=== PATIENT | female | born 1975 | race Caucasian/White ===

== ENCOUNTER 2016-10-23 10:36 | Emergency (ER) | payer OTHER ==
[2016-10-23 12:15] VITALS: BP 116/59
--- NOTE | 2016-10-23 13:06 | UC ---
Throat Pain/Nasal Cory HPI - HPI Summary HPI Summary: ONE WEEK OF SINUS CONGESTION COUGH, SORE THROAT. NO FEVER. 22 YEAR SMOKING HISTORY. SINUS CONGESTION AND COUGH NOT IMPROVING. - History of Current Complaint Chief Complaint: UCRespiratory Stated Complaint: COUGH,SINUS COMPLAINT Time Seen by Provider: 10/23/16 12:27 Hx Obtained From: Patient Hx Last Menstrual Period: 10/14/16 Onset/Duration: Gradual Onset, Lasting Weeks, Still Present Severity: Moderate Cough: Nonproductive Associated Signs & Symptoms: Positive: Hoarseness, Sinus Discomfort, Nasal Discharge - Epiglottits Risk Factors Epiglottis Risk Factors: Negative - Allergies/Home Medications Allergies/Adverse Reactions: Allergies Allergy/AdvReac Type Severity Reaction Status Date / Time No Known Allergies Allergy Verified 10/23/16 12:15 PMH/Surg Hx/FS Hx/Imm Hx Previously Healthy: Yes - Surgical History Surgical History: Yes Surgery Procedure, Year, and Place: gallbladder, tubal ligation - Family History Known Family History: Positive: Hypertension - Social History Occupation: Employed Full-time Lives: With Family Alcohol Use: None Substance Use Type: None Smoking Status (MU): Heavy Every Day Tobacco Smoker Type: Cigarettes Amount Used/How Often: 1/2 ppd Length of Time of Smoking/Using Tobacco: since age 19 Have You Smoked in the Last Year: Yes Cessation Counseling: Counseled 3+Min - 10 Min Review of Systems Constitutional: Negative Skin: Negative Eyes: Negative ENT: Nasal Discharge Respiratory: Cough Cardiovascular: Negative Gastrointestinal: Negative Genitourinary: Negative Motor: Negative Neurovascular: Negative Musculoskeletal: Negative Neurological: Negative Psychological: Negative All Other Systems Reviewed And Are Negative: Yes Physical Exam Triage Information Reviewed: Yes Appearance: Well-Appearing, No Pain Distress, Well-Nourished Vital Signs: Initial Vital Signs Temp 99 F 10/23/16 12:07 Pulse 95 10/23/16 12:07 Resp 16 10/23/16 12:07 BP 116/59 10/23/16 12:07 Pulse Ox 96 10/23/16 12:07 Vital Signs Reviewed: Yes Eye Exam: Normal ENT: Positive: Hearing grossly normal, TM bulging, TM dull Dental Exam: Normal Neck exam: Normal Neck: Positive: Supple, Nontender, No Lymphadenopathy Respiratory Exam: Other - COUGH Respiratory: Positive: Chest non-tender, Lungs clear, Normal breath sounds, No respiratory distress, No accessory muscle use Cardiovascular Exam: Normal Cardiovascular: Positive: RRR, No Murmur, Pulses Normal Abdominal Exam: Normal Musculoskeletal Exam: Normal Musculoskeletal: Positive: Strength Intact, ROM Intact Neurological Exam: Normal Psychological Exam: Normal Psychological: Positive: Normal Response To Family Throat Pain/Nasal Course/Dx - Differential Dx/Diagnosis Differential Diagnosis/HQI/PQRI: Pharyngitis, Sinusitis, Tonsillitis, URI Provider Diagnoses: SINUSITIS Discharge - Discharge Plan Condition: Stable Disposition: HOME Prescriptions: Amoxicillin/Clavulanate TAB* [Augmentin TAB 875*] 875 mg PO BID #20 tab Benzonatate CAP* [Tessalon 100 MG CAP*] 100 mg PO TID PRN #15 cap PRN Reason: Cough Patient Education Materials: Sinusitis (ED) Forms: *Work Release Referrals: KENDRA Yuen [Primary Care Provider] -
== END 2016-10-23 13:08 | disposition home or self-care (01) ==
LOC: UCCORT 10:36
DX: J32.9 Chronic sinusitis, unspecified (principal); Z90.49 Acquired absence of other specified parts of digestive tract; F17.210 Nicotine dependence, cigarettes, uncomplicated; Z71.6 Tobacco abuse counseling
CPT/HCPCS: 99212; G0463

== ENCOUNTER 2017-05-26 09:13 | Emergency (ER) | payer OTHER ==
[2017-05-26 09:54] VITALS: BP 105/68
--- NOTE | 2017-05-26 10:15 | UC ---
Skin Complaint HPI - HPI Summary HPI Summary: Pt c/o sudden onset itchy, raised, erythema rash to upper extremities, abdomen, back that improved with topical hydrocortisone cream. 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 - History of Current Complaint Chief Complaint: UCSkin Time Seen by Provider: 05/26/17 10:02 Stated Complaint: SKIN COMPLAINT Hx Obtained From: Patient Hx Last Menstrual Period: 05/20/17 ?: No Onset/Duration: Gradual Onset, Lasting Hours, Other - improved Onset Severity: Mild Current Severity: Mild Location: Generalized - uypper torso Character: Pruritus, Hives, Redness Aggravating Factor(s): Nothing Alleviating Factor(s): Antihistamines, OTC Creams/Salves Associated Signs & Symptoms: Positive: Rash Related History: Possible Reaction to: Environmental Exposure - Allergy/Home Medications Allergies/Adverse Reactions: Allergies Allergy/AdvReac Type Severity Reaction Status Date / Time No Known Allergies Allergy Verified 05/26/17 09:50 Review of Systems Constitutional: Negative Skin: Rash Eyes: Negative ENT: Negative Respiratory: Negative Cardiovascular: Negative Gastrointestinal: Negative Genitourinary: Negative Motor: Negative Neurovascular: Negative Musculoskeletal: Negative Neurological: Negative Psychological: Negative Is Patient Immunocompromised?: No All Other Systems Reviewed And Are Negative: Yes PMH/Surg Hx/FS Hx/Imm Hx Previously Healthy: Yes - Surgical History Surgical History: Yes Surgery Procedure, Year, and Place: gallbladder, tubal ligation - Family History Known Family History: Positive: Hypertension - Social History Occupation: Employed Full-time Lives: With Family Alcohol Use: None Substance Use Type: None Smoking Status (MU): Heavy Every Day Tobacco Smoker Type: Cigarettes Amount Used/How Often: 1/2 ppd Length of Time of Smoking/Using Tobacco: since age 19 Have You Smoked in the Last Year: Yes Physical Exam Triage Information Reviewed: Yes Appearance: Well-Appearing Vital Signs: Initial Vital Signs Temp 98.2 F 05/26/17 09:46 Pulse 68 05/26/17 09:46 Resp 16 05/26/17 09:46 BP 105/68 05/26/17 09:46 Pulse Ox 97 05/26/17 09:46 Vital Signs Reviewed: Yes Eye Exam: Normal ENT Exam: Normal Dental Exam: Normal Neck exam: Normal Respiratory Exam: Normal Cardiovascular Exam: Normal Musculoskeletal Exam: Normal Neurological Exam: Normal Psychological Exam: Normal Skin Exam: Other Skin: Positive: rashes Course/Dx - Differential Diagnoses - Skin Complaint Differential Diagnoses: Urticaria - Diagnoses Provider Diagnoses: contact dermatitis Discharge - Discharge Plan Condition: Stable Disposition: HOME Prescriptions: Cetirizine* [ZyrTEC 10 MG TAB*] 10 mg PO DAILY #20 tab Patient Education Materials: Diphenhydramine (By mouth), Contact Dermatitis (ED ) Referrals: No Primary Care Phys,NOPCP [Primary Care Provider] - If Needed
== END 2017-05-26 10:24 | disposition home or self-care (01) ==
LOC: UCCORT 09:13
DX: L50.9 Urticaria, unspecified (principal)
CPT/HCPCS: 99212; G0463

== ENCOUNTER 2017-12-23 08:01 | Emergency (ER) | payer OTHER ==
[2017-12-23 08:30] VITALS: BP 116/73
--- NOTE | 2017-12-23 08:57 | UC ---
Headache HPI - HPI Summary HPI Summary: 1. headache x 3 day , pain is 6 out of 10 , diffuse pressure, no radiation , pain is constant, no fever, no chills, no n/v, no visual changes, + photophobia, improves with antiinflammatories 2. right elbow pain x 2 months, no known injury, pain is outside of right elbow , dull ache, worse with movements and lifting - History Of Current Complaint Chief Complaint: UCHeadache Stated Complaint: HEADACHE, RIGHT ARM PAIN Time Seen by Provider: 12/23/17 08:13 Hx Obtained From: Patient Hx Last Menstrual Period: 12/13/17 Onset/Duration: Gradual Onset, Lasting Days - 3, Still Present Onset Of Symptoms: Gradual, Still Present Initially Headache Was: Moderate Currently Pain Is: Current Pain Scale(0-10)=, Moderate Pain Intensity: 8 Timing: Constant Character: Dull, Pressure Location of Headache: Diffuse Aggravating Factor(s): Bright Lights Allevating Factor(s): Rest, Medication - Motrin Associated Signs And Symptoms: Negative: Dizziness, Seizure, Nausea, Vomiting, Sinus Pressure, Fever, Neck Pain, Neck Stiffness, Decreased LOC, Visual Changes , Other (Noted In Comments) - Allergies/Home Medications Allergies/Adverse Reactions: Allergies Allergy/AdvReac Type Severity Reaction Status Date / Time No Known Allergies Allergy Verified 12/23/17 08:30 Home Medications: Home Medications Naproxen Sodium [Aleve] 440 mg PO ONCE PRN 12/23/17 [History Confirmed 12/23/17] buPROPion HCl [Bupropion HCl Xl] 150 mg PO DAILY 12/23/17 [History Confirmed ] PMH/Surg Hx/FS Hx/Imm Hx Previously Healthy: No - Surgical History Surgical History: Yes Surgery Procedure, Year, and Place: gallbladder, tubal ligation - Family History Known Family History: Positive: Hypertension - Social History Alcohol Use: None Substance Use Type: None Smoking Status (MU): Light Every Day Tobacco Smoker Type: Cigarettes Amount Used/How Often: 1/2 ppd Length of Time of Smoking/Using Tobacco: since age 19 Have You Smoked in the Last Year: Yes Review of Systems Constitutional: Negative Skin: Negative Eyes: Negative ENT: Negative Respiratory: Negative Cardiovascular: Negative Neurological: Headache Is Patient Immunocompromised?: No All Other Systems Reviewed And Are Negative: Yes Physical Exam Triage Information Reviewed: Yes Appearance: Well-Appearing, No Pain Distress, Well-Nourished Vital Signs: Initial Vital Signs Temp 98.5 F 12/23/17 08:19 Pulse 88 12/23/17 08:19 Resp 20 12/23/17 08:19 BP 116/73 12/23/17 08:19 Pulse Ox 99 12/23/17 08:19 Vital Signs Reviewed: Yes Eye Exam: Normal Eyes: Positive: Conjunctiva Clear ENT: Positive: Normal ENT inspection, Hearing grossly normal, Pharynx normal Neck: Positive: Supple, Nontender, No Lymphadenopathy Respiratory: Positive: Chest non-tender, Lungs clear, Normal breath sounds Cardiovascular: Positive: RRR, No Murmur, Pulses Normal Abdominal Exam: Normal Musculoskeletal: Positive: Other: - right elbow: no erythema, no swelling, tenderness lateral elbow , increase pain with elbow extension and flexion Neurological: Positive: Alert Skin Exam: Normal UC Physical Exam Vital Signs On Initial Exam: Initial Vitals Temp Pulse Resp BP Pulse Ox 98.5 F 88 20 116/73 99 12/23/17 08:19 12/23/17 08:19 12/23/17 08:19 12/23/17 08:19 12/23/17 08:19 - Neurological Exam Neurological: Normal, Sensory/Motor Intact, Alert, Oriented to Person Place, Time, CN Intact II-III, Normal Gait, Speech Normal Headache Course/Dx - Differential Dx/Diagnosis Provider Diagnoses: headaches. Tennis elbow right Discharge - Sign-Out/Discharge Documenting (check all that apply): Patient Departure - Discharge Plan Condition: Stable Disposition: HOME Prescriptions: Naproxen [Naproxen 500 mg tab] 500 mg PO BID #20 tablet Patient Education Materials: Tennis Elbow (ED), Acute Headache (ED) Referrals: No Primary Care Phys,NOPCP [Primary Care Provider] - 2 Weeks Additional Instructions: make sure you are resting your right arm / elbow, no heavy lifting , if your have to life anything make sure to life with your palms up , ice for 20 min 3 x per day , take Naproxen 2 x per day use tennis elbow brace - Billing Disposition and Condition Condition: STABLE Disposition: Home
== END 2017-12-23 08:55 | disposition home or self-care (01) ==
LOC: UCCORT 08:01
DX: R51 Headache (principal); M77.11 Lateral epicondylitis, right elbow; F17.210 Nicotine dependence, cigarettes, uncomplicated
CPT/HCPCS: 99212; G0463

== ENCOUNTER 2018-07-17 10:09 | Emergency (ER) | payer OTHER ==
[2018-07-17 12:52] VITALS: BP 110/80
--- NOTE | 2018-07-17 12:56 | UC ---
Throat Pain/Nasal Cory HPI - HPI Summary HPI Summary: 43 yo female presents with sore throat that began last night. She has not taken anything OTC for her symptoms. She is tolerating po well. Denies fever, chills, sinus symptoms, cough, rash, headache. - History of Current Complaint Chief Complaint: UCRespiratory Stated Complaint: ST Time Seen by Provider: 07/17/18 12:55 Hx Obtained From: Patient Hx Last Menstrual Period: 12/13/17 Onset/Duration: Sudden Onset Severity: Mild Pain Intensity: 2 Pain Scale Used: 0-10 Numeric - Allergies/Home Medications Allergies/Adverse Reactions: Allergies Allergy/AdvReac Type Severity Reaction Status Date / Time No Known Allergies Allergy Verified 07/17/18 12:51 Home Medications: Home Medications NK [No Home Medications Reported] 07/17/18 [History Confirmed 07/17/18] PMH/Surg Hx/FS Hx/Imm Hx - Additional Past Medical History Additional PMH: None - Surgical History Surgical History: Yes Surgery Procedure, Year, and Place: gallbladder, tubal ligation - Family History Known Family History: Positive: Hypertension - Social History Occupation: Employed Full-time Lives: With Family Alcohol Use: None Substance Use Type: None Smoking Status (MU): Former Smoker Type: Cigarettes Amount Used/How Often: 1/2 ppd Length of Time of Smoking/Using Tobacco: since age 19 Have You Smoked in the Last Year: Yes Review of Systems All Other Systems Reviewed And Are Negative: Yes Constitutional: Positive: Negative Skin: Positive: Negative Eyes: Positive: Negative ENT: Positive: Sore Throat Respiratory: Positive: Negative Cardiovascular: Positive: Negative Gastrointestinal: Positive: Negative Neurovascular: Positive: Negative Neurological: Positive: Negative Psychological: Positive: Negative Physical Exam - Summary Physical Exam Summary: GENERAL: NAD. WDWN. No pain distress. SKIN: No rashes, sores, lesions, or open wounds. HEENT: Head: AT/NC Eyes: EOM intact. Conjunctiva clear without inflammation or discharge. Ears: Hearing grossly normal. TMs intact, no bulging, erythema, or edema. Nose: Nasal mucosa pink and moist. NTTP maxillary and frontal sinus. Throat: Posterior oropharynx without exudates, erythema, or tonsillar enlargement. Uvula midline. NECK: Supple. Nontender. No lymphadenopathy. CHEST: CTAB. No r/r/w. No accessory muscle use. Breathing comfortably and in no distress. CV: RRR. Without m/r/g. Pulses intact. Cap refill <2seconds NEURO: Alert. PSYCH: Age appropriate behavior. Triage Information Reviewed: Yes Vital Signs: Initial Vital Signs Temp 97.3 F 07/17/18 12:50 Pulse 68 07/17/18 12:50 Resp 18 07/17/18 12:50 BP 110/80 07/17/18 12:50 Pulse Ox 100 07/17/18 12:50 Laboratory Tests 07/17/18 12:59 Group A Strep Rapid Negative Vital Signs Reviewed: Yes Throat Pain/Nasal Course/Dx - Course Course Of Treatment: POC strep negative and exam normal. Suspect viral pharyngitis. Advised to try tea with honey, warm salt water, and tylenol/ ibuprofen for discomfort. F/u if symptoms do not improve. - Differential Dx/Diagnosis Provider Diagnosis: Pharyngitis Discharge - Sign-Out/Discharge Documenting (check all that apply): Patient Departure All imaging exams completed and their final reports reviewed: No Studies - Discharge Plan Condition: Stable Disposition: HOME Patient Education Materials: Pharyngitis (ED) Referrals: No Primary Care Phys,NOPCP [Primary Care Provider] - Additional Instructions: If you develop a fever, shortness of breath, chest pain, new or worsening symptoms - please call your PCP or go to the ED. - Billing Disposition and Condition Condition: STABLE Disposition: Home
== END 2018-07-17 13:18 | disposition home or self-care (01) ==
LOC: UCCORT 10:09
DX: J02.9 Acute pharyngitis, unspecified (principal); Z87.891 Personal history of nicotine dependence
CPT/HCPCS: 87651; 99211; G0463